=== PATIENT | female | born 1945 | race Caucasian/White ===

== ENCOUNTER 2016-06-24 11:40 | Emergency (ER) | payer MEDICARE, OTHER ==
[2016-06-24 11:45] VITALS: TEMP 98.1; BMI 46.1
[2016-06-24] MEDS ORDERED: SODIUM CHLORIDE 0.9% 10 ML FLUSH FLUSH PRN (11:52)
--- NOTE | 2016-06-24 11:56 | EDPRACDOC ---
- General Information Chief Complaint: Chest Pain Stated Complaint: LT SIDED CP SHARP Time Seen by Provider: 06/24/16 11:51 Mode of Arrival: Car Home Medications: Home Medications Lisinopril/Hydrochlorothiazide [Lisinopril-Hctz 10-12.5 mg Tab] 1 tab PO DAILY 04/11/12 Paroxetine HCl [Paxil] 20 mg PO DAILY 04/11/12 Verapamil HCl [Verapamil ER] 240 mg PO DAILY 04/11/12 Omeprazole 40 mg PO DAILY 08/01/14 Ergocalciferol (Vitamin D2) [Vitamin D] 50,000 units PO .Mondays06/24/16 Hydrocodone Bit/Acetaminophen [Hydrocodon-Acetaminophen 5-325] 1 tab PO Q4H PRN #10 tab 06/24/16 Allergies/Adverse Reactions: Allergies Allergy/AdvReac Type Severity Reaction Status Date / Time CINEBAC Allergy SHOCK Uncoded 06/24/16 11:45 - History of Present Illness Onset: 1 DAY HPI: LEFT CHEST PAIN 9/10. STARTED 1600 YESTERDAY. SHARP STABBING. WAVES OF NAUSEA. H/O TACHYCARDIA. NO H/O CAD. NONSMOKER. NOT DIABETIC. NO FAM HX [place]. ED Past Medical History - Patient Medical History Cardiac History: Reports: Hypertension Musculoskeletal History: Reports: Osteoarthritis Psychological History: Reports: Depression Systemic History: Denies: Cancer Surgical History: Reports: Tonsillectomy/Adnoidectomy - Family Medical History Reports: Hypertension (DAD), Stroke (DAD). Denies: Diabetes, Cancer, Cardiac Disorders - Social Medical History Smoking Status: Never smoker EDM Review of Systems - Review of Systems ROS Negative Except as Marked: Yes All systems reviewed and were negative except as marked Respiratory: No Symptoms Reported Cardiovascular: Chest Pain Gastrointestinal: Nausea Genitourinary: No Symptoms Reported Integumentary: No Symptoms Reported Allergic/Immunologic: No Symptoms Reported - Physical Exam Constitutional: Alert (Awake), No apparent distress Oriented to: Time, Person, Place Last recorded Vital Signs: Last Vital Signs Temp 98.1 F 06/24/16 11:43 Pulse 104 06/24/16 11:43 Resp 20 06/24/16 11:43 BP 153/70 06/24/16 11:43 Pulse Ox 95 06/24/16 11:43 Oxygen Pulse Oxygen Saturation 95 O2 Device Room Air Oxygen Flow Rate Fraction of Inspired Oxygen ( FIO2) - HEENT Head: Normal ( normocephalic) Eye Exam: Normal (PERRL, EOMI, Sclera white) Oropharynx: Normal (Pharynx:Moist without exudate,Gums-no swelling) Nose: No Symptoms Reported (septum midline) Neck: Normal (FROM, trachea at midline) - Respiratory/Cardiovascular Respiratory: Normal - CTA (BBS clear to auscultation without adventitious sounds ) Cardiovascular: Normal (RRR without murmur, gallop or rub) - GI Auscultation: Normal (NABS) Palpation: Normal (Soft,No rebound or guarding, non distended) Tenderness: Non tender Buchanan's Sign: Negative - Musculoskeletal Back: Normal (Non-Tender) Extremities: Normal (Normal tone, Pulses 2+ No cyanosis or edema, FROM) - Integumentary Skin: Normal, Warm, Dry Lymphatics: Normal (no adenopathy) - Neurologic Memory Impaired: Normal Motor Function: Normal (Normal tone, Pulses 2+ No cyanosis or edema, FROM) Cranial Nerve: Normal (CN II-X11 intact sensation, strength 5/5) Cerebellar: Normal Mood Description: Normal Perception: Normal ED Chest Pain Exam - Respiratory/Cardiovascular Respiratory: Normal - CTA Chest Palpation: Tender, Reproduces Pain (LEFT CHEST) - Action ASA given in the ED: Yes - Results 06/24/16 12:10 06/24/16 12:10 - EKG EKG #1 EKG Time: 12:06 -: Yes EKG interpreted by me Rate: bpm: 92 [place]: Normal Rhythm: NSR Block: None Hypertrophy: None ST: Normal Comments: NORMAL EKG Decision Time to Discharge: 15:55 - Departure Yes I personally saw and evaluated the patient. Disposition: Home Condition: Stable Final Diagnosis: Chest wall pain Instructions: Chest Wall Pain Education/Counseling Given To: Patient Education/Counseling Given Regarding: Diagnosis Referrals: Rico Marie MD [Primary Care Provider] - One Week Prescriptions: Hydrocodone Bit/Acetaminophen [Hydrocodon-Acetaminophen 5-325] 1 tab PO Q4H PRN #10 tab PRN Reason: Pain Additional Instructions: MOTRIN 600 MG THREE TIMES DAILY FOR 1 WEEK. ASPIRIN 81 MG DAILY.
[2016-06-24 12:25] LABS: AUTOMATED BASOPHIL 0.6 % (0-2); AUTOMATED LYMPH 14.9 % (17-44); AUTOMATED NEUTROPHIL 76.5 % (45-76); MPV 8.5 fL (7.4-10.4)
[2016-06-24 12:36] LABS: PARTIAL THROMB. TIME 24.7 SEC (22-35)
--- NOTE | 2016-06-24 12:37 | DIRPT ---
CLINICAL DATA: Chest pain since last night on left side. EXAM: PORTABLE CHEST 1 VIEW COMPARISON: Chest x-ray dated 01/26/2016. FINDINGS: Study is hypoinspiratory with crowding of the perihilar bronchovascular markings. Given this limitation, lungs appear clear. No evidence of pneumonia. No pleural effusion seen. No pneumothorax seen. Heart size is upper normal. Overall cardiomediastinal silhouette is stable in size and configuration. Osseous and soft tissue structures about the chest are unremarkable. IMPRESSION: Low lung volumes. No evidence of acute cardiopulmonary abnormality. Electronically Signed By: Romel Ford M.D. On: 06/24/2016 12:34
[2016-06-24 12:39] LABS: BLOOD UREA NITROGEN 20 MG/DL (7-17); CALCIUM 8.9 MG/DL (8.4-10.2); CALCULATED OSMOLALITY 276 MOs/Kg (270-290); CHLORIDE 104 mEq/L (98-107); GLUCOSE 100 MG/DL (70-99); SODIUM LEVEL 142 mEq/L (137-146); TOTAL PROTEIN 7.3 G/DL (6.3-8.2)
[2016-06-24 16:09] VITALS: BP 190/95; PULSE 88
== END 2016-06-24 16:05 | disposition home or self-care (01) ==
LOC: ED 11:40
DX: R07.89 Other chest pain (principal)
CPT/HCPCS: 36415; 71010; 80053; 83880; 84484; 85025; 85610; 85730; 93005; 99284